=== PATIENT | male | born 1985 | race Caucasian/White ===

== ENCOUNTER 2018-12-09 01:30 | Emergency (ER) | payer OTHER ==
[2018-12-09 01:39] VITALS: BP 120/79; PULSE 74; RESP 18; TEMP 98
[2018-12-09] MEDS ORDERED: NAPROXEN 250 MG TAB PO STA (01:47)
--- NOTE | 2018-12-09 02:01 | XR ---
EXAMINATION TYPE: XR foot complete RT DATE OF EXAM: 12/09/2018 COMPARISON: NONE HISTORY: Foot pain TECHNIQUE: 3 views FINDINGS: Metatarsals are intact. I see no fracture nor dislocation. There are no erosions. IMPRESSION: Negative right foot exam.
--- NOTE | 2018-12-09 02:10 | ED ---
Lower Extremity Injury HPI - General Chief Complaint: Extremity Injury, Lower Stated Complaint: Foot injury Time Seen by Provider: 12/09/18 01:43 Source: patient Mode of arrival: ambulatory Limitations: physical limitation - History of Present Illness Initial Comments: 33-year-old male patient presents to the emergency department today for evaluation of right foot pain. Patient states that 2 weeks ago he kicked his mother's dog. Patient states he has been having pain in the foot since then. Patient states he was seen at [facility]. States it did not do x-rays however the did give him crutches and a shoe to wear. Patient states his been taking Avapro for without relief of symptoms. Patient states he is able to ablate but it does cause him pain. He denies any numbness or tingling to the foot. Denies any other injuries. Patient denies any headache, neck pain, back pain, chest pain, shortness of breath, dizziness, weakness, abdominal pain, nausea, vomiting, or difficulties with bowel movements or urination. - Related Data Previous Rx's Medication Instructions Recorded Naproxen [EC-Naprosyn] 500 mg PO BID PRN #30 tablet. 12/09/18 Allergies Allergy/AdvReac Type Severity Reaction Status Date / Time lithium Allergy Anaphylaxis Verified 12/09/18 01:40 acetaminophen [From Tylenol] AdvReac Nausea & Verified 12/09/18 01:40 Vomiting amoxicillin AdvReac Nausea & Verified 12/09/18 01:40 Vomiting Review of Systems ROS Statement: Those systems with pertinent positive or pertinent negative responses have been documented in the HPI. ROS Other: All systems not noted in ROS Statement are negative. Past Medical History Past Medical History: No Reported History History of Any Multi-Drug Resistant Organisms: None Reported Past Surgical History: No Surgical Hx Reported Past Psychological History: Depression Smoking Status: Current every day smoker Past Alcohol Use History: None Reported Past Drug Use History: None Reported General Exam Limitations: physical limitation General appearance: alert, in no apparent distress, other (This is a well- developed, well-nourished adult male patient in no acute distress. Vital signs upon presentation are temperature 98.0F, pulse 74, respirations 18, blood pressure 120/79, pulse ox 100% on room air) Eye exam: Present: normal appearance, PERRL, EOMI. Absent: scleral icterus, conjunctival injection, periorbital swelling ENT exam: Present: normal exam, normal oropharynx, mucous membranes moist Respiratory exam: Present: normal lung sounds bilaterally. Absent: respiratory distress, wheezes, rales, rhonchi, stridor Cardiovascular Exam: Present: regular rate, normal rhythm, normal heart sounds. Absent: systolic murmur, diastolic murmur, rubs, gallop, clicks Extremities exam: Present: normal inspection, full ROM, tenderness (Tenderness over the dorsal aspect of the right foot), normal capillary refill, other (Skin to the right foot is pink, warm, dry. Cap refills less than 3 seconds. Pedal and posttibial pulses are 2+ and equal bilaterally.). Absent: pedal edema, joint swelling, calf tenderness Neurological exam: Present: alert, oriented X3, CN II-XII intact Psychiatric exam: Present: normal affect, normal mood Skin exam: Present: warm, dry, intact, normal color. Absent: rash Course Vital Signs 12/09/18 12/09/18 01:32 02:27 Temperature 98 F 98 F Pulse Rate 74 74 Respiratory 18 18 Rate Blood Pressure 120/79 120/79 O2 Sat by Pulse 100 100 Oximetry Medical Decision Making - Medical Decision Making 33-year-old male patient presents to the emergency department today for evaluation of right foot pain. Physical examination is unremarkable. Neurovascular status is intact. X-rays were obtained and showed no acute abnormalities. Patient does have an orthotic shoe and crutches at home. He is urged to use these for symptom relief. He is given up her prescription for naproxen. He is instructed to follow up with his primary care physician for recheck in 1-2 days. Return parameters were discussed in detail. They verbalize understanding and agrees with this plan. - Radiology Data Radiology results: report reviewed, image reviewed 3 views of the right foot are obtained. Report was reviewed in its entirety. Impression by Dr. Monroe shows negative right foot exam. Disposition Clinical Impression: Right foot sprain Disposition: HOME SELF-CARE Condition: Good Instructions (If sedation given, give patient instructions): Foot Sprain (ED) Additional Instructions: Continue to rest, ice, and elevate the foot. Use orthotic shoe for support. Take naproxen as directed. Follow up with your primary care physician for recheck in 1-2 days. Return to the emergency department for any new, worsening, or concerning symptoms. Prescriptions: Naproxen [EC-Naprosyn] 500 mg PO BID PRN #30 tablet.dr AMBROSIO Reason: Pain Is patient prescribed a controlled substance at d/c from ED?: No Referrals: Jamil Christensen MD [Primary Care Provider] - 1-2 days Time of Disposition: 02:09
== END 2018-12-09 02:27 | disposition home or self-care (01) ==
LOC: EC 01:30
DX: S93.601A Unspecified sprain of right foot, initial encounter (principal); F17.200 Nicotine dependence, unspecified, uncomplicated; Z88.6 Allergy status to analgesic agent; Z88.0 Allergy status to penicillin; W54.1XXA Struck by dog, initial encounter; Y92.009 Unspecified place in unspecified non-institutional (private) residence as the place of occurrence of the external cause
CPT/HCPCS: 99283